=== PATIENT | male | born 1955 | race Caucasian/White ===

== ENCOUNTER 2023-05-23 17:10 | Outpatient (RCR) | payer MEDICARE, OTHER, SELFPAY | END 2023-05-23 23:59 | disposition home or self-care (01) | LOC: CRHB 17:10 | PROVIDERS: FAMILY PHYSICIAN Internal Medicine | DX: Z95.4 Presence of other heart-valve replacement (principal) | CPT/HCPCS: G0422 ==

== ENCOUNTER 2023-06-27 17:44 | Outpatient (RCR) | payer MEDICARE, OTHER, SELFPAY | END 2023-06-27 23:59 | disposition home or self-care (01) | LOC: CRHB 17:44 | PROVIDERS: ATTENDING PHYSICIAN Internal Medicine Cardiovascular Disease; FAMILY PHYSICIAN Internal Medicine | DX: Z95.4 Presence of other heart-valve replacement (principal) | CPT/HCPCS: G0422 ==

== ENCOUNTER 2023-07-25 18:02 | Outpatient (RCR) | payer MEDICARE, OTHER, SELFPAY | END 2023-07-25 23:59 | disposition home or self-care (01) | LOC: CRHB 18:02 | PROVIDERS: ATTENDING PHYSICIAN Internal Medicine Cardiovascular Disease; FAMILY PHYSICIAN Internal Medicine | DX: Z95.4 Presence of other heart-valve replacement (principal) | CPT/HCPCS: G0422 ==

== ENCOUNTER 2023-08-13 16:15 | Outpatient (RCR) | payer MEDICARE, OTHER, SELFPAY | END 2023-08-13 23:59 | disposition home or self-care (01) | LOC: CRHB 16:15 | PROVIDERS: ATTENDING PHYSICIAN Internal Medicine Cardiovascular Disease; FAMILY PHYSICIAN Internal Medicine | DX: I34.0 Nonrheumatic mitral (valve) insufficiency (principal); Z95.4 Presence of other heart-valve replacement; Z95.811 Presence of heart assist device | CPT/HCPCS: G0422 ==